=== PATIENT | male | born 1985 | race Caucasian/White ===

== ENCOUNTER 2017-07-19 10:04 | Emergency (ER) | payer OTHER ==
[2017-07-19 10:52] LABS: ADD MAN DIFF? NO
[2017-07-19 10:55] LABS: BASOPHILS % 0.5 % (0.0-2.0); EOSINOPHILS # 0.2 10^3/ul (0.0-0.5); EOSINOPHILS % 3.1 % (0.0-7.0); HEMATOCRIT 29.3 % (42.0-52.0); HEMOGLOBIN 8.9 g/dl (14.0-18.0); LYMPHOCYTES # 2.1 10^3/ul (0.8-2.9); LYMPHOCYTES % 27.8 % (15.0-51.0); MEAN CORPUSCULAR HEMOGLOBIN 26.7 pg (29.0-33.0); MEAN CORPUSCULAR HGB CONC 30.4 g/dl (32.0-37.0); MEAN PLATELET VOLUME 8.3 fl (7.4-10.4); MONOCYTE # 0.8 10^3/ul (0.3-0.9); MONOCYTES % 10.1 % (0.0-11.0); NEUTROPHIL # 4.4 10^3/ul (1.6-7.5); NEUTROPHILS % 58.1 % (39.0-77.0); PLATELET COUNT 654 10^3/UL (140-415); RED BLOOD COUNT 3.33 10^6/ul (4.70-6.10); RED CELL DISTRIBUTION WIDTH 14.6 % (11.5-14.5)
[2017-07-19 10:55] LABS: WHITE BLOOD COUNT 7.5 10^3/ul (4.8-10.8)
[2017-07-19 11:16] LABS: ANION GAP 18 (8-16); BLOOD UREA NITROGEN 26 mg/dl (7-20); CALCIUM 9.6 mg/dl (8.4-10.2); CARBON DIOXIDE 30 mmol/L (21-31); CHLORIDE 102 mmol/L (97-110); CREATININE 2.28 mg/dl (0.61-1.24); GLUCOSE 85 mg/dl (70-220); INR 1.12; POTASSIUM 3.9 mmol/L (3.5-5.1); PROTIME 14.6 Sec (11.9-14.9); PT RATIO 1.1; SODIUM 146 mmol/L (135-144)
[2017-07-19 11:36] LABS: PARTIAL THROMBOPLASTIN TIME 44.5 Sec (25.0-35.0)
== END 2017-07-19 13:27 | disposition home or self-care (01) ==
LOC: E/R 10:04
DX: D64.9 Anemia, unspecified (principal); R40.2252 Coma scale, best verbal response, oriented, at arrival to emergency department; N18.9 Chronic kidney disease, unspecified; R40.2142 Coma scale, eyes open, spontaneous, at arrival to emergency department; R40.2362 Coma scale, best motor response, obeys commands, at arrival to emergency department; R42 Dizziness and giddiness
CPT/HCPCS: 36415; 80048; 85025; 85610; 85730; 93005; 99284-25

== ENCOUNTER 2018-01-24 02:01 | Emergency (ER) | payer OTHER ==
[2018-01-24] MEDS: SOD CHLORIDE 0.9% 1,000 ML IV (02:24)
[2018-01-24 02:29] LABS: ADD MAN DIFF? NO
[2018-01-24 02:32] LABS: BASOPHIL # 0.1 10^3/ul (0.0-0.1); BASOPHILS % 0.7 % (0.0-2.0); EOSINOPHILS # 0.2 10^3/ul (0.0-0.5); EOSINOPHILS % 2.5 % (0.0-7.0); HEMATOCRIT 38.4 % (42.0-52.0); HEMOGLOBIN 12.1 g/dl (14.0-18.0); LYMPHOCYTES # 2.5 10^3/ul (0.8-2.9); LYMPHOCYTES % 28.7 % (15.0-51.0); MEAN CORPUSCULAR HEMOGLOBIN 27.4 pg (29.0-33.0); MEAN CORPUSCULAR HGB CONC 31.5 g/dl (32.0-37.0); MEAN CORPUSCULAR VOLUME 87.1 fl (82.0-101.0); MEAN PLATELET VOLUME 8.9 fl (7.4-10.4); MONOCYTE # 0.7 10^3/ul (0.3-0.9); MONOCYTES % 8.4 % (0.0-11.0); NEUTROPHIL # 5.2 10^3/ul (1.6-7.5); NEUTROPHILS % 59.5 % (39.0-77.0); PLATELET COUNT 461 10^3/UL (140-415); RED BLOOD COUNT 4.41 10^6/ul (4.70-6.10); RED CELL DISTRIBUTION WIDTH 13.9 % (11.5-14.5)
[2018-01-24 02:32] LABS: WHITE BLOOD COUNT 8.8 10^3/ul (4.8-10.8)
[2018-01-24 02:56] LABS: ANION GAP 18 (8-16); BLOOD UREA NITROGEN 32 mg/dl (7-20); CALCIUM 9.1 mg/dl (8.4-10.2); CARBON DIOXIDE 28 mmol/L (21-31); CHLORIDE 105 mmol/L (97-110); CREATININE 1.89 mg/dl (0.61-1.24); GLUCOSE 98 mg/dl (70-220); POTASSIUM 3.5 mmol/L (3.5-5.1); SODIUM 147 mmol/L (135-144)
== END 2018-01-24 03:50 | disposition home or self-care (01) ==
LOC: E/R 02:01
DX: N18.9 Chronic kidney disease, unspecified (principal); R40.2142 Coma scale, eyes open, spontaneous, at arrival to emergency department; R40.2362 Coma scale, best motor response, obeys commands, at arrival to emergency department; R40.2252 Coma scale, best verbal response, oriented, at arrival to emergency department
CPT/HCPCS: 36415; 80048; 85025; 99284-25

== ENCOUNTER 2018-04-20 23:45 | Inpatient (IN) | payer OTHER ==
[2018-04-21] MEDS ORDERED: ONDANSETRON 4 MG INJ IV (01:00)
[2018-04-21] MEDS ORDERED: MINERAL OIL 133 ML ENEMA PR (01:00)
[2018-04-21] MEDS ORDERED: BISACODYL (EC) 5 MG TAB PO ×2 (01:00)
[2018-04-21] MEDS ORDERED: NACL 0.9% 3 ML SYG IV (01:00)
[2018-04-21] MEDS ORDERED: MAGNESIUM HYDROXIDE 30ML CUP PO (01:00)
[2018-04-21] MEDS ORDERED: traZODone 100 MG TAB PO (01:00)
[2018-04-21] MEDS ORDERED: HYDROCODONE/APAP (5/325) TAB PO (01:00)
[2018-04-21] MEDS ORDERED: DOCUSATE SODIUM 100 MG CAP PO (01:00)
[2018-04-21 01:56] LABS: SODIUM,URINE RANDOM 122 mmol/L (30-90)
[2018-04-21 01:58] LABS: CREATININE,URINE RANDOM 26.53 mg/dl (20-370); PROTEIN/CREAT RATIO 1.43 RATIO
[2018-04-21 02:02] LABS: HEMOGLOBIN A1C 5.2 % (0-5.9)
[2018-04-21 02:08] LABS: ALANINE AMINOTRANSFERASE 22 IU/L (13-69); ALBUMIN 3.7 g/dl (3.3-4.9); ALBUMIN/GLOBULIN RATIO 1.15; ALKALINE PHOSPHATASE 72 IU/L (42-121); ANION GAP 12 (5-13); ASPARTATE AMINO TRANSFERASE 16 IU/L (15-46); BILIRUBIN,INDIRECT 0.1 mg/dl (0-1.1); BILIRUBIN,TOTAL 0.1 mg/dl (0.2-1.3); BLOOD UREA NITROGEN 36 mg/dl (7-20); CALCIUM 8.8 mg/dl (8.4-10.2); CARBON DIOXIDE 24 mmol/L (21-31); CHLORIDE 104 mmol/L (97-110); CHOL/HDL RATIO 4.2 RATIO; CHOLESTEROL 118 mg/dl (100-200); CREATININE 1.75 mg/dl (0.61-1.24); Estimated GFR 45 mL/min (>60); GLUCOSE 102 mg/dl (70-220); HDL CHOLESTEROL 28 mg/dl (28-63); LDL CHOLESTEROL,CALCULATED 73 mg/dl; POTASSIUM 4.2 mmol/L (3.5-5.1); SODIUM 140 mmol/L (135-144); TOTAL PROTEIN 6.9 g/dl (6.1-8.1); TRIGLYCERIDES 83 mg/dl (0-149)
[2018-04-21 02:10] LABS: INR 1.05; PROTIME 13.8 Sec (11.9-14.9); PT RATIO 1.1
[2018-04-21 02:11] LABS: PARTIAL THROMBOPLASTIN TIME 39.7 Sec (23.0-35.0)
[2018-04-21 02:15] LABS: ADD UMIC YES; UR ASCORBIC ACID NEGATIVE (NEGATIVE); UR BACTERIA FEW /HPF (NONE SEEN); UR BILIRUBIN (Dip) NEGATIVE (NEGATIVE); UR BLOOD (Dip) 1+ mg/dL (NEGATIVE); UR CLARITY CLOUDY (CLEAR); UR COLOR YELLOW (YELLOW); UR GLUCOSE (Dip) NEGATIVE (NEGATIVE); UR KETONES (Dip) NEGATIVE (NEGATIVE); UR LEUKOCYTE ESTERASE (Dip) 3+ Leu/ul (NEGATIVE); UR NITRITE (Dip) NEGATIVE (NEGATIVE); UR RBC 121 /HPF (0-5); UR SPECIFIC GRAVITY (Dip) 1.008 (1.003-1.030); UR TOTAL PROTEIN (Dip) NEGATIVE (NEGATIVE); UR UROBILINOGEN (Dip) NEGATIVE (NEGATIVE); UR WBC > 182 /HPF (0-5)
[2018-04-21] MEDS ORDERED: HEPARIN 5,000 UNIT/0.5 ML VIAL ×3 (02:49→20:35)
[2018-04-21] MEDS: HEPARIN 5,000 UNIT/1 ML VIAL SC ×3 (02:53→21:27)
[2018-04-21] MEDS: CEFTRIAXONE 2 GM/50 ML (PMX) 50 ML IVPB (06:49)
[2018-04-21 07:32] LABS: ADD MAN DIFF? NO
[2018-04-21 07:38] LABS: WHITE BLOOD COUNT 9.7 10^3/ul (4.8-10.8)
[2018-04-21 07:38] LABS: BASOPHIL # 0.1 10^3/ul (0.0-0.1); BASOPHILS % 0.7 % (0.0-2.0); EOSINOPHILS # 0.3 10^3/ul (0.0-0.5); EOSINOPHILS % 3.5 % (0.0-7.0); HEMATOCRIT 29.9 % (42.0-52.0); HEMOGLOBIN 9.3 g/dl (14.0-18.0); LYMPHOCYTES # 2.3 10^3/ul (0.8-2.9); LYMPHOCYTES % 23.9 % (15.0-51.0); MEAN CORPUSCULAR HEMOGLOBIN 28.2 pg (29.0-33.0); MEAN CORPUSCULAR HGB CONC 31.1 g/dl (32.0-37.0); MEAN CORPUSCULAR VOLUME 90.6 fl (82.0-101.0); MEAN PLATELET VOLUME 9.5 fl (7.4-10.4); MONOCYTE # 0.9 10^3/ul (0.3-0.9); MONOCYTES % 9.2 % (0.0-11.0); NEUTROPHILS % 62.2 % (39.0-77.0); PLATELET COUNT 445 10^3/UL (140-415); RED CELL DISTRIBUTION WIDTH 13.1 % (11.5-14.5)
[2018-04-21 07:51] LABS: ANION GAP 13 (5-13); BLOOD UREA NITROGEN 44 mg/dl (7-20); CALCIUM 8.5 mg/dl (8.4-10.2); CARBON DIOXIDE 24 mmol/L (21-31); CHLORIDE 103 mmol/L (97-110); CREATININE 1.95 mg/dl (0.61-1.24); Estimated GFR 40 mL/min (>60); GLUCOSE 87 mg/dl (70-220); POTASSIUM 4.3 mmol/L (3.5-5.1); SODIUM 140 mmol/L (135-144)
[2018-04-21] MEDS: ZINC SULFATE 220 MG CAP PO (08:51)
[2018-04-21] MEDS: MULTIVITAMINS THERAPEUTIC TAB PO (08:51)
[2018-04-21] MEDS: ASCORBIC ACID 500 MG TAB PO ×2 (08:51→21:27)
[2018-04-21] MEDS: FERROUS SULFATE (EC) 325 MG TAB PO ×2 (08:51→21:27)
[2018-04-21] MEDS ORDERED: PROTEIN HYDROLYS PO (09:00)
[2018-04-21] MEDS ORDERED: AMINO ACIDS PO (09:00)
[2018-04-22] MEDS: SOD CHLORIDE 0.9% 1,000 ML IV ×3 (00:21→17:06)
[2018-04-22] MEDS: HEPARIN 5,000 UNIT/1 ML VIAL SC ×3 (06:00→19:35)
[2018-04-22] MEDS: CEFTRIAXONE 2 GM/50 ML (PMX) 50 ML IVPB (06:17)
[2018-04-22 06:47] LABS: ADD MAN DIFF? NO
[2018-04-22 06:53] LABS: BASOPHIL # 0.1 10^3/ul (0.0-0.1); BASOPHILS % 0.9 % (0.0-2.0); EOSINOPHILS # 0.3 10^3/ul (0.0-0.5); EOSINOPHILS % 3.8 % (0.0-7.0); HEMATOCRIT 31.6 % (42.0-52.0); HEMOGLOBIN 9.6 g/dl (14.0-18.0); LYMPHOCYTES # 2.1 10^3/ul (0.8-2.9); MEAN CORPUSCULAR HEMOGLOBIN 27.4 pg (29.0-33.0); MEAN CORPUSCULAR HGB CONC 30.4 g/dl (32.0-37.0); MEAN CORPUSCULAR VOLUME 90.3 fl (82.0-101.0); MEAN PLATELET VOLUME 9.5 fl (7.4-10.4); MONOCYTE # 0.7 10^3/ul (0.3-0.9); NEUTROPHIL # 5.1 10^3/ul (1.6-7.5); NEUTROPHILS % 61.9 % (39.0-77.0); PLATELET COUNT 484 10^3/UL (140-415); RED CELL DISTRIBUTION WIDTH 13.1 % (11.5-14.5)
[2018-04-22 06:53] LABS: WHITE BLOOD COUNT 8.2 10^3/ul (4.8-10.8)
[2018-04-22 07:15] LABS: ANION GAP 11 (5-13); BLOOD UREA NITROGEN 42 mg/dl (7-20); CALCIUM 8.8 mg/dl (8.4-10.2); CARBON DIOXIDE 25 mmol/L (21-31); CHLORIDE 106 mmol/L (97-110); CREATININE 1.78 mg/dl (0.61-1.24); Estimated GFR 45 mL/min (>60); GLUCOSE 76 mg/dl (70-220); POTASSIUM 3.9 mmol/L (3.5-5.1); SODIUM 142 mmol/L (135-144)
[2018-04-22] MEDS: MULTIVITAMINS THERAPEUTIC TAB PO (08:52)
[2018-04-22] MEDS: ZINC SULFATE 220 MG CAP PO (08:53)
[2018-04-22] MEDS: FERROUS SULFATE (EC) 325 MG TAB PO ×2 (08:53→20:22)
[2018-04-22] MEDS: ASCORBIC ACID 500 MG TAB PO ×2 (08:53→20:22)
[2018-04-23] MEDS: HEPARIN 5,000 UNIT/1 ML VIAL SC ×3 (02:54→21:26)
[2018-04-23] MEDS: CEFTRIAXONE 2 GM/50 ML (PMX) 50 ML IVPB (05:38)
[2018-04-23 06:15] LABS: ADD MAN DIFF? NO
[2018-04-23 06:20] LABS: WHITE BLOOD COUNT 8.9 10^3/ul (4.8-10.8)
[2018-04-23 06:20] LABS: BASOPHIL # 0.1 10^3/ul (0.0-0.1); BASOPHILS % 0.8 % (0.0-2.0); EOSINOPHILS # 0.3 10^3/ul (0.0-0.5); EOSINOPHILS % 3.6 % (0.0-7.0); HEMATOCRIT 30.9 % (42.0-52.0); HEMOGLOBIN 9.4 g/dl (14.0-18.0); LYMPHOCYTES # 2.3 10^3/ul (0.8-2.9); MEAN CORPUSCULAR HEMOGLOBIN 27.6 pg (29.0-33.0); MEAN CORPUSCULAR HGB CONC 30.4 g/dl (32.0-37.0); MEAN CORPUSCULAR VOLUME 90.6 fl (82.0-101.0); MEAN PLATELET VOLUME 8.8 fl (7.4-10.4); MONOCYTE # 0.6 10^3/ul (0.3-0.9); MONOCYTES % 7.2 % (0.0-11.0); NEUTROPHIL # 5.5 10^3/ul (1.6-7.5); NEUTROPHILS % 61.8 % (39.0-77.0); PLATELET COUNT 489 10^3/UL (140-415); RED BLOOD COUNT 3.41 10^6/ul (4.70-6.10); RED CELL DISTRIBUTION WIDTH 12.9 % (11.5-14.5)
[2018-04-23 07:00] LABS: ANION GAP 14 (5-13); BLOOD UREA NITROGEN 43 mg/dl (7-20); CALCIUM 8.8 mg/dl (8.4-10.2); CARBON DIOXIDE 23 mmol/L (21-31); CHLORIDE 106 mmol/L (97-110); CREATININE 1.89 mg/dl (0.61-1.24); Estimated GFR 42 mL/min (>60); GLUCOSE 77 mg/dl (70-220); SODIUM 143 mmol/L (135-144)
[2018-04-23] MEDS: ASCORBIC ACID 500 MG TAB PO ×2 (08:30→21:22)
[2018-04-23] MEDS: FERROUS SULFATE (EC) 325 MG TAB PO ×2 (08:30→21:22)
[2018-04-23] MEDS: MULTIVITAMINS THERAPEUTIC TAB PO (08:30)
[2018-04-23] MEDS: ZINC SULFATE 220 MG CAP PO (08:30)
[2018-04-23] MEDS: SOD CHLORIDE 0.9% 1,000 ML IV ×3 (12:57→18:15)
[2018-04-23] MEDS ORDERED: FENTAnyl 50 MCG/ML VIAL (14:00)
[2018-04-23] MEDS ORDERED: IODIXANOL LOCM 50 ML BTL (14:00)
[2018-04-23] MEDS ORDERED: LIDOCAINE 2% (MDV) 20 ML INJ (14:00)
[2018-04-23] MEDS ORDERED: MIDAZOLAM 1 MG/ML 2 ML INJ (14:00)
[2018-04-23] MEDS ORDERED: HEPARIN 5,000 UNIT/0.5 ML VIAL (20:51)
[2018-04-24 05:21] LABS: ADD MAN DIFF? NO; BASOPHIL # 0.1 10^3/ul (0.0-0.1); BASOPHILS % 0.7 % (0.0-2.0); EOSINOPHILS # 0.1 10^3/ul (0.0-0.5); EOSINOPHILS % 0.8 % (0.0-7.0); HEMOGLOBIN 10.7 g/dl (14.0-18.0); LYMPHOCYTES # 1.4 10^3/ul (0.8-2.9); LYMPHOCYTES % 10.4 % (15.0-51.0); MEAN CORPUSCULAR HEMOGLOBIN 27.8 pg (29.0-33.0); MEAN CORPUSCULAR HGB CONC 30.6 g/dl (32.0-37.0); MEAN CORPUSCULAR VOLUME 90.9 fl (82.0-101.0); MEAN PLATELET VOLUME 9.4 fl (7.4-10.4); MONOCYTE # 0.9 10^3/ul (0.3-0.9); NEUTROPHIL # 10.5 10^3/ul (1.6-7.5); NEUTROPHILS % 80.7 % (39.0-77.0); PLATELET COUNT 534 10^3/UL (140-415); RED BLOOD COUNT 3.85 10^6/ul (4.70-6.10); RED CELL DISTRIBUTION WIDTH 13.3 % (11.5-14.5)
[2018-04-24 05:21] LABS: WHITE BLOOD COUNT 13.1 10^3/ul (4.8-10.8)
[2018-04-24] MEDS ORDERED: HEPARIN 5,000 UNIT/0.5 ML VIAL ×3 (05:24→21:12)
[2018-04-24] MEDS: CEFTRIAXONE 2 GM/50 ML (PMX) 50 ML IVPB (05:41)
[2018-04-24] MEDS: SOD CHLORIDE 0.9% 1,000 ML IV ×3 (05:44→23:30)
[2018-04-24] MEDS: HEPARIN 5,000 UNIT/1 ML VIAL SC ×3 (05:45→21:29)
[2018-04-24 06:10] LABS: ANION GAP 15 (5-13); BLOOD UREA NITROGEN 32 mg/dl (7-20); CALCIUM 9.1 mg/dl (8.4-10.2); CARBON DIOXIDE 23 mmol/L (21-31); CHLORIDE 107 mmol/L (97-110); CREATININE 1.76 mg/dl (0.61-1.24); Estimated GFR 45 mL/min (>60); GLUCOSE 83 mg/dl (70-220); POTASSIUM 4.6 mmol/L (3.5-5.1); SODIUM 145 mmol/L (135-144)
[2018-04-24] MEDS: FERROUS SULFATE (EC) 325 MG TAB PO ×2 (08:23→21:15)
[2018-04-24] MEDS: ZINC SULFATE 220 MG CAP PO (08:23)
[2018-04-24] MEDS: ASCORBIC ACID 500 MG TAB PO ×2 (08:23→21:17)
[2018-04-24] MEDS: MULTIVITAMINS THERAPEUTIC TAB PO (08:24)
[2018-04-24] MEDS: CIPROFLOXACIN 400MG/D5W 200 ML IVPB (21:15)
[2018-04-24] MEDS: ACETAMINOPHEN 325 MG TAB PO (21:16)
[2018-04-25] MEDS: SOD CHLORIDE 0.9% 1,000 ML IV (02:13)
[2018-04-25] MEDS ORDERED: HEPARIN 5,000 UNIT/0.5 ML VIAL (05:26)
[2018-04-25] MEDS: HEPARIN 5,000 UNIT/1 ML VIAL SC ×3 (06:00→20:47)
[2018-04-25] MEDS: CEFTRIAXONE 2 GM/50 ML (PMX) 50 ML IVPB (06:00)
[2018-04-25] MEDS: ZINC SULFATE 220 MG CAP PO (08:22)
[2018-04-25] MEDS: FERROUS SULFATE (EC) 325 MG TAB PO ×2 (08:22→20:20)
[2018-04-25] MEDS: ASCORBIC ACID 500 MG TAB PO ×2 (08:22→20:20)
[2018-04-25] MEDS: MULTIVITAMINS THERAPEUTIC TAB PO (08:23)
[2018-04-25] MEDS: MEROPENEM 1 GM/50ML(PMX) 50 ML IVPB ×2 (11:10→20:20)
[2018-04-25 13:46] LABS: ADD MAN DIFF? NO
[2018-04-25 13:49] LABS: WHITE BLOOD COUNT 8.6 10^3/ul (4.8-10.8)
[2018-04-25 13:49] LABS: BASOPHIL # 0.1 10^3/ul (0.0-0.1); BASOPHILS % 0.6 % (0.0-2.0); EOSINOPHILS # 0.3 10^3/ul (0.0-0.5); EOSINOPHILS % 3.1 % (0.0-7.0); HEMATOCRIT 33.8 % (42.0-52.0); HEMOGLOBIN 10.5 g/dl (14.0-18.0); LYMPHOCYTES # 2.5 10^3/ul (0.8-2.9); LYMPHOCYTES % 28.6 % (15.0-51.0); MEAN CORPUSCULAR HEMOGLOBIN 27.7 pg (29.0-33.0); MEAN CORPUSCULAR HGB CONC 31.1 g/dl (32.0-37.0); MEAN CORPUSCULAR VOLUME 89.2 fl (82.0-101.0); MEAN PLATELET VOLUME 8.9 fl (7.4-10.4); MONOCYTE # 1.1 10^3/ul (0.3-0.9); MONOCYTES % 12.6 % (0.0-11.0); NEUTROPHIL # 4.7 10^3/ul (1.6-7.5); NEUTROPHILS % 54.6 % (39.0-77.0); PLATELET COUNT 498 10^3/UL (140-415); RED BLOOD COUNT 3.79 10^6/ul (4.70-6.10); RED CELL DISTRIBUTION WIDTH 13.2 % (11.5-14.5)
[2018-04-25 14:08] LABS: ALANINE AMINOTRANSFERASE 19 IU/L (13-69); ALBUMIN 3.9 g/dl (3.3-4.9); ALBUMIN/GLOBULIN RATIO 0.97; ALKALINE PHOSPHATASE 100 IU/L (42-121); ANION GAP 15 (5-13); ASPARTATE AMINO TRANSFERASE 17 IU/L (15-46); BILIRUBIN,INDIRECT 0.2 mg/dl (0-1.1); BILIRUBIN,TOTAL 0.2 mg/dl (0.2-1.3); BLOOD UREA NITROGEN 23 mg/dl (7-20); CALCIUM 9.2 mg/dl (8.4-10.2); CARBON DIOXIDE 23 mmol/L (21-31); CHLORIDE 104 mmol/L (97-110); CREATININE 1.76 mg/dl (0.61-1.24); Estimated GFR 45 mL/min (>60); GLUCOSE 99 mg/dl (70-220); POTASSIUM 3.8 mmol/L (3.5-5.1); SODIUM 142 mmol/L (135-144); TOTAL PROTEIN 7.9 g/dl (6.1-8.1)
[2018-04-26] MEDS: HEPARIN 5,000 UNIT/1 ML VIAL SC ×2 (05:15→14:00)
[2018-04-26] MEDS: MEROPENEM 1 GM/50ML(PMX) 50 ML IVPB (09:57)
[2018-04-26] MEDS: ASCORBIC ACID 500 MG TAB PO (09:57)
[2018-04-26] MEDS: MULTIVITAMINS THERAPEUTIC TAB PO (09:57)
[2018-04-26] MEDS: ZINC SULFATE 220 MG CAP PO (09:57)
[2018-04-26] MEDS: FERROUS SULFATE (EC) 325 MG TAB PO (09:57)
== END 2018-04-26 18:30 | disposition home or self-care (01) | DRG 659 ==
LOC: 2NE 23:45
PROVIDERS: Internal Medicine
PROC: 0T143JD Bypass Left Kidney Pelvis to Cutaneous with Synthetic Substitute, Percutaneous Approach (ICD-10-PCS; principal; 2018-04-23 14:08)
PROC: 0T133JD Bypass Right Kidney Pelvis to Cutaneous with Synthetic Substitute, Percutaneous Approach (ICD-10-PCS; 2018-04-23 14:08)
DX: T83.85XA Stenosis due to genitourinary prosthetic devices, implants and grafts, initial encounter (principal); L89.154 Pressure ulcer of sacral region, stage 4; L89.893 Pressure ulcer of other site, stage 3; E43 Unspecified severe protein-calorie malnutrition; N13.6 Pyonephrosis; N17.9 Acute kidney failure, unspecified; G82.20 Paraplegia, unspecified; D64.9 Anemia, unspecified; M43.24 Fusion of spine, thoracic region; M43.26 Fusion of spine, lumbar region
CPT/HCPCS: 71045; 74475; 76775; 76942; 80048; 80053; 80061; 81001; 81003; 82570; 83036; 83605; 84300; 84443; 85025; 85610; 85730; 87070; 87075; 87086; 93005

== ENCOUNTER 2018-09-07 15:49 | Emergency (ER) | payer OTHER ==
[2018-09-07 16:45] LABS: HEMATOCRIT 37.4 % (42.0-52.0); HEMOGLOBIN 11.6 g/dl (14.0-18.0); MEAN CORPUSCULAR HEMOGLOBIN 25.8 pg (29.0-33.0); MEAN CORPUSCULAR VOLUME 83.1 fl (82.0-101.0); MEAN PLATELET VOLUME 8.7 fl (7.4-10.4); PLATELET COUNT 696 10^3/UL (140-415)
[2018-09-07 16:45] LABS: WHITE BLOOD COUNT 11.3 10^3/ul (4.8-10.8)
[2018-09-07 16:47] LABS: ADD MAN DIFF? YES
[2018-09-07] MEDS: SODIUM CHLORIDE 0.9% 1L BAG IV* (16:47)
[2018-09-07 17:02] LABS: ALANINE AMINOTRANSFERASE 9 IU/L (13-69); ALBUMIN 4.1 g/dl (3.3-4.9); ALKALINE PHOSPHATASE 101 IU/L (42-121); ANION GAP 11 (5-13); ASPARTATE AMINO TRANSFERASE 18 IU/L (15-46); BILIRUBIN,INDIRECT 0.3 mg/dl (0-1.1); BILIRUBIN,TOTAL 0.3 mg/dl (0.2-1.3); BLOOD UREA NITROGEN 24 mg/dl (7-20); CALCIUM 9.8 mg/dl (8.4-10.2); CARBON DIOXIDE 25 mmol/L (21-31); CHLORIDE 105 mmol/L (97-110); Estimated GFR 59 mL/min (>60); GLUCOSE 114 mg/dl (70-220); POTASSIUM 3.3 mmol/L (3.5-5.1); SODIUM 141 mmol/L (135-144); TOTAL PROTEIN 8.2 g/dl (6.1-8.1)
[2018-09-07 17:04] LABS: INR 1.04; PROTIME 13.7 Sec (11.9-14.9); PT RATIO 1.1
[2018-09-07 17:13] LABS: TROPONIN-I < 0.012 ng/ml (0.000-0.120)
[2018-09-07 17:54] LABS: ADD UMIC YES; UR AMORPHOUS CRYSTAL FEW /HPF (NONE SEEN); UR ASCORBIC ACID NEGATIVE (NEGATIVE); UR BACTERIA MANY /HPF (NONE SEEN); UR BILIRUBIN (Dip) NEGATIVE (NEGATIVE); UR BLOOD (Dip) 2+ mg/dL (NEGATIVE); UR CLARITY CLOUDY (CLEAR); UR COLOR YELLOW (YELLOW); UR GLUCOSE (Dip) NEGATIVE (NEGATIVE); UR KETONES (Dip) NEGATIVE (NEGATIVE); UR LEUKOCYTE ESTERASE (Dip) 3+ Leu/ul (NEGATIVE); UR NITRITE (Dip) NEGATIVE (NEGATIVE); UR RBC 9 /HPF (0-5); UR SPECIFIC GRAVITY (Dip) 1.011 (1.003-1.030); UR TOTAL PROTEIN (Dip) 1+ mg/dl (NEGATIVE); UR UROBILINOGEN (Dip) NEGATIVE (NEGATIVE); UR WBC > 182 /HPF (0-5)
[2018-09-07] MEDS: POTASSIUM CHLORIDE (SR) 20 MEQ TAB PO (19:11)
[2018-09-07 21:12] LABS: LACTIC ACID 1.1 mmol/L (0.5-2.0)
== END 2018-09-07 21:05 | disposition home or self-care (01) ==
LOC: E/R 21:05
DX: E86.0 Dehydration (principal); E87.6 Hypokalemia; D64.9 Anemia, unspecified; R00.0 Tachycardia, unspecified
CPT/HCPCS: 36415; 71045; 80053; 81001; 83605; 84484; 85025; 85610; 85730; 87040-91; 87070; 87086; 93005; 99285-25